=== PATIENT | male | born 1965 | race Two or more races ===

== ENCOUNTER 2021-06-16 20:56 | Emergency (ER) | payer MEDICARE, MEDICAID ==
--- NOTE | 2021-06-16 21:40 | EDM.PDOC ---
ED HPI GENERAL MEDICAL PROBLEM - General Chief Complaint: General Stated Complaint: MENTAL HEALTH Time Seen by Provider: 06/16/21 21:10 Source of Information: Reports: Patient History Limitations: Reports: No Limitations - History of Present Illness INITIAL COMMENTS - FREE TEXT/NARRATIVE: Patient is a 55 YO M who was wandering along the hospital grounds, law enforcement was called and patient was found to be acute psychotic. He has a diagnosis of paranoid Schizophrenia, Bipolar Disorder and has not been taking his medications for months. When I asked him why? he said " I think doctors are trying to harm me by letting me take these medicines". He has been having auditory hallucinations for years but worse for the past months since he is not on any medications. Peole, GOD and and d evil are talking to me he said. He has insomnia as a result of the voices. Denies having any suicidal or homicidal ideations. He has multiple psych hospitalizations but nothing seem to help. - Related Data Allergies Allergy/AdvReac Type Severity Reaction Status Date / Time No Known Allergies Allergy Verified 06/16/21 21:18 Home Meds: Home Meds Ibuprofen [Motrin] 800 mg PO QID PRN 06/16/21 [History] hydrOXYzine pamoate [Vistaril] 50 mg PO Q6H #90 cap 06/16/21 [Rx] lamoTRIgine [Lamictal] 75 mg PO DAILY #150 tablet 06/16/21 [Rx] ziprasidone HCL [Geodon] 20 mg PO BID #60 cap 06/16/21 [Rx] Social & Family History - Tobacco Use Tobacco Use Status *Q: Unknown Ever Used Tobacco - Caffeine Use Caffeine Use: Reports: Coffee, Soda - Recreational Drug Use Recreational Drug Use: No ED ROS GENERAL - Review of Systems Review Of Systems: See Below Constitutional: Reports: No Symptoms HEENT: Reports: No Symptoms Respiratory: Reports: No Symptoms Cardiovascular: Reports: No Symptoms Endocrine: Reports: No Symptoms GI/Abdominal: Reports: No Symptoms : Reports: No Symptoms Musculoskeletal: Reports: No Symptoms Skin: Reports: No Symptoms Neurological: Reports: No Symptoms Psychiatric: Reports: Hallucinations, Mood Lability Hematologic/Lymphatic: Reports: No Symptoms ED EXAM, GENERAL - Physical Exam Exam: See Below Exam Limited By: No Limitations General Appearance: Alert, No Apparent Distress Ears: Normal External Exam, Normal Canal Nose: Normal Inspection, Normal Mucosa, No Blood Throat/Mouth: Normal Inspection, Normal Lips, Normal Teeth Head: Atraumatic, Normocephalic Neck: Normal Inspection, Supple, Non-Tender, Full Range of Motion Respiratory/Chest: No Respiratory Distress, Lungs Clear, Normal Breath Sounds, No Accessory Muscle Use Cardiovascular: Normal Peripheral Pulses, Regular Rate, Rhythm, No Edema, No Gallop, No JVD, No Murmur GI/Abdominal: Normal Bowel Sounds, Soft, Non-Tender, No Organomegaly, No Distention, No Abnormal Bruit, No Mass, Pelvis Stable (Male) Exam: No Hernia, Normal Inspection, Normal Prostate, Circumcised Rectal (Males) Exam: Normal Exam, Normal Rectal Tone, Prostate Normal Back Exam: Normal Inspection, Full Range of Motion Extremities: Normal Inspection, Normal Range of Motion, Non-Tender, No Pedal Edema, Normal Capillary Refill Neurological: Alert, Oriented, CN II-XII Intact, Normal Cognition, Normal Gait, Normal Reflexes, No Motor/Sensory Deficits Psychiatric: Normal Affect, Normal Mood Skin Exam: Warm, Intact, Normal Color, No Rash Lymphatic: No Adenopathy Course - Vital Signs Text/Narrative:: Lab result was reviewed ad discussed with patient Psych placement Patient refused to be hospitalized, he said he will just take his medication and follow up with [facility] Last Recorded V/S: Last Vital Signs Temp 37.2 C 06/16/21 21:05 Pulse 87 06/16/21 21:05 Resp 18 06/16/21 21:05 BP 139/94 H 06/16/21 21:05 Pulse Ox 95 06/16/21 21:05 - Orders/Labs/Meds Orders: Active Orders 24 hr Category Date Time Status THYROXINE (T4) FREE, DIRECT Stat Lab 06/16/21 21:25 Received Labs: Laboratory Tests 06/16/21 06/16/21 06/16/21 Range/Units 21:25 21:25 21:25 WBC 10.6 H (3.2-10.1) x10-3/uL RBC 4.48 (3.90-5.90) x10(6)uL Hgb 12.8 L (12.9-17.7) g/dL Hct 38.5 (38.3-50.1) % MCV 86.0 (80.8-98.7) fL MCH 28.6 (27.0-33.3) pg MCHC 33.3 (28.7-35.3) g/dL RDW 13.7 (12.4-15.0) % Plt Count 302 (117-477) x10(3)uL MPV 7.6 (6.7-11.0) fL Neut % (Auto) 58.6 (40.3-71.8) % Lymph % (Auto) 25.3 (15.8-45.3) % Millard % (Auto) 9.2 (5.5-15.2) % Eos % (Auto) 5.9 (0.1-6.8) % Baso % (Auto) 1.0 (0.3-3.8) % Neut # (Auto) 6.2 (1.7-6.9) x10-3/uL Lymph # (Auto) 2.7 (0.5-4.5) x10-3/uL Millard # (Auto) 1.0 (0.0-1.2) x10-3/uL Eos # (Auto) 0.6 (0.0-0.6) x10-3/uL Baso # (Auto) 0.1 (0.0-0.3) x10-3/uL Sodium 142 (135-145) mmol/L Potassium 4.1 (3.5-5.3) mmol/L Chloride 104 (100-110) mmol/L Carbon Dioxide 29 (21-32) mmol/L BUN 18 (7-18) mg/dL Creatinine 1.1 (0.70-1.30) mg/dL Est Cr Clr Drug Dosing 78.91 mL/min Estimated GFR (MDRD) > 60 (>60) BUN/Creatinine Ratio 16.4 (9-20) Glucose 113 (80-116) mg/dL Calcium 8.9 (8.6-10.2) mg/dL Total Bilirubin 0.3 (0.1-1.3) mg/dL AST 29 H (5-25) IU/L ALT 43 H (12-36) U/L Alkaline Phosphatase 70 (56-112) IU/L Total Protein 7.7 (6.0-8.0) g/dL Albumin 3.4 L (3.5-5.2) g/dL Globulin 4.3 g/dL Albumin/Globulin Ratio 0.8 TSH, Ultra Sensitive 1.11 (0.36-3.74) IU/mL Urine Color (YELLOW) Urine Appearance (CLEAR) Urine pH (5.0-6.5) Ur Specific [place] (1.010-1.025) Urine Protein (NEGATIVE) mg/dL Urine Glucose (UA) (NORMAL) mg/dL Urine Ketones (NEGATIVE) mg/dL Urine Occult Blood (NEGATIVE) Urine Nitrite (NEGATIVE) Urine Bilirubin (NEGATIVE) Urine Urobilinogen (NEGATIVE) mg/dL Ur Leukocyte Esterase (NEGATIVE) Urine RBC (0-5) Urine WBC (0-5) Ur Squamous Epith Cells (NS,R,O) Urine Bacteria (NS) Urine Opiates Screen (NEGATIVE) Ur Buprenorphine Scrn (NEGATIVE) Ur Oxycodone Screen (NEGATIVE) Urine Methadone Screen (NEGATIVE) Ur Propoxyphene Screen (NEGATIVE) Ur Barbiturates Screen (NEGATIVE) Ur Tricyclics Screen (NEGATIVE) Ur Phencyclidine Scrn (NEGATIVE) Ur Amphetamine Screen (NEGATIVE) U Methamphetamines Scrn (NEGATIVE) U Benzodiazepines Scrn (NEGATIVE) U Cocaine Metab Screen (NEGATIVE) U Marijuana (THC) Screen (NEGATIVE) Ethyl Alcohol < 0.03 (<0.03) % 06/16/21 06/16/21 Range/Units 21:30 21:30 WBC (3.2-10.1) x10-3/uL RBC (3.90-5.90) x10(6)uL Hgb (12.9-17.7) g/dL Hct (38.3-50.1) % MCV (80.8-98.7) fL MCH (27.0-33.3) pg MCHC (28.7-35.3) g/dL RDW (12.4-15.0) % Plt Count (117-477) x10(3)uL MPV (6.7-11.0) fL Neut % (Auto) (40.3-71.8) % Lymph % (Auto) (15.8-45.3) % Millard % (Auto) (5.5-15.2) % Eos % (Auto) (0.1-6.8) % Baso % (Auto) (0.3-3.8) % Neut # (Auto) (1.7-6.9) x10-3/uL Lymph # (Auto) (0.5-4.5) x10-3/uL Millard # (Auto) (0.0-1.2) x10-3/uL Eos # (Auto) (0.0-0.6) x10-3/uL Baso # (Auto) (0.0-0.3) x10-3/uL Sodium (135-145) mmol/L Potassium (3.5-5.3) mmol/L Chloride (100-110) mmol/L Carbon Dioxide (21-32) mmol/L BUN (7-18) mg/dL Creatinine (0.70-1.30) mg/dL Est Cr Clr Drug Dosing mL/min Estimated GFR (MDRD) (>60) BUN/Creatinine Ratio (9-20) Glucose (80-116) mg/dL Calcium (8.6-10.2) mg/dL Total Bilirubin (0.1-1.3) mg/dL AST (5-25) IU/L ALT (12-36) U/L Alkaline Phosphatase (56-112) IU/L Total Protein (6.0-8.0) g/dL Albumin (3.5-5.2) g/dL Globulin g/dL Albumin/Globulin Ratio TSH, Ultra Sensitive (0.36-3.74) IU/mL Urine Color Yellow (YELLOW) Urine Appearance Clear (CLEAR) Urine pH 6.5 (5.0-6.5) Ur Specific [place] 1.015 (1.010-1.025) Urine Protein Negative (NEGATIVE) mg/dL Urine Glucose (UA) Normal (NORMAL) mg/dL Urine Ketones Negative (NEGATIVE) mg/dL Urine Occult Blood Negative (NEGATIVE) Urine Nitrite Negative (NEGATIVE) Urine Bilirubin Negative (NEGATIVE) Urine Urobilinogen Normal (NEGATIVE) mg/dL Ur Leukocyte Esterase Negative (NEGATIVE) Urine RBC 0-5 (0-5) Urine WBC 0-5 (0-5) Ur Squamous Epith Cells Occasional (NS,R,O) Urine Bacteria Occasional H (NS) Urine Opiates Screen Negative (NEGATIVE) Ur Buprenorphine Scrn Negative (NEGATIVE) Ur Oxycodone Screen Negative (NEGATIVE) Urine Methadone Screen Negative (NEGATIVE) Ur Propoxyphene Screen Negative (NEGATIVE) Ur Barbiturates Screen Negative (NEGATIVE) Ur Tricyclics Screen Negative (NEGATIVE) Ur Phencyclidine Scrn Negative (NEGATIVE) Ur Amphetamine Screen Negative (NEGATIVE) U Methamphetamines Scrn Negative (NEGATIVE) U Benzodiazepines Scrn Negative (NEGATIVE) U Cocaine Metab Screen Negative (NEGATIVE) U Marijuana (THC) Screen Negative (NEGATIVE) Ethyl Alcohol (<0.03) % Meds: Medications Discontinued Medications Generic Name Dose Route Start Last Admin Trade Name Freq PRN Reason Stop Dose Admin Hydroxyzine HCl 50 mg 06/16/21 21:52 06/16/21 22:05 Hydroxyzine Hcl 25 Mg Tab PO 06/16/21 21:53 50 mg NOW STA Administration Lamotrigine 75 mg 06/16/21 21:52 06/16/21 22:22 Lamotrigine 25 Mg Tab PO 06/16/21 21:53 75 mg NOW STA Administration Olanzapine 10 mg 06/16/21 22:05 06/16/21 22:10 Olanzapine 10 Mg Vial IM 06/16/21 22:06 10 mg ONETIME ONE Administration Ziprasidone 20 mg 06/16/21 21:52 06/16/21 22:21 Ziprasidone Hcl 20 Mg Cap PO 06/16/21 21:53 20 mg NOW STA Administration Departure - Departure Time of Disposition: 22:40 Disposition: Home, Self-Care 01 Condition: Good Clinical Impression: Paranoid schizophrenia, Bipolar 1 disorder, Mood disorder - Discharge Information Prescriptions: ziprasidone HCL [Geodon] 20 mg PO BID #60 cap lamoTRIgine [Lamictal] 75 mg PO DAILY #150 tablet hydrOXYzine pamoate [Vistaril] 50 mg PO Q6H #90 cap Instructions: Bipolar 1 Disorder, Schizophrenia Forms: ED Department Discharge Additional Instructions: Please read discharge instructions on Bipolar disorder and Paranoid schizophrenia Start taking your medication again by tomorrow Geodon 20 mg twice daily Lamictal 75 mg daily Hydroxyzine 50 mg every 6 hours as needed fo anxiety Follow up with [facility] Note (ED) - Evaluation Sepsis Screening Result: No Definite Risk - Focused Exam Vital Signs: Vital Signs Temp Pulse Resp BP Pulse Ox 06/16/21 21:05 37.2 C 87 18 139/94 H 95 - My Orders Last 24 Hours: My Active Orders 06/16/21 21:25 THYROXINE (T4) FREE, DIRECT Stat - Assessment/Plan Last 24 Hours: My Active Orders 06/16/21 21:25 THYROXINE (T4) FREE, DIRECT Stat
[2021-06-16] MEDS ORDERED: Ziprasidone HCl 20 MG Cap PO STA (21:52)
[2021-06-16] MEDS ORDERED: hydrOXYzine HCl 25 MG Tab PO STA (21:52)
[2021-06-16] MEDS ORDERED: lamoTRIgine 25 MG Tab PO STA (21:52)
[2021-06-16] MEDS ORDERED: OLANZapine 10 MG Vial IM ONE (22:05)
== END 2021-06-16 22:50 | disposition home or self-care (01) ==
LOC: FB.ED 20:56
DX: F20.0 Paranoid schizophrenia (principal); F31.9 Bipolar disorder, unspecified
CPT/HCPCS: 36415; 80053; 80307; 81001; 84439; 84443; 85025; 96372; 99284; A9270; J3490